=== PATIENT | female | born 1985 | race African-American/Black ===

== ENCOUNTER 2017-03-22 11:17 | Emergency (ER) | payer OTHER ==
[~2017-03-22] VITALS: Ht 170.2 cm; Wt 126.0 kg
[~2017-03-22 11:17] MED LIST: BIRTH CONTROL PILLS; NOHOMEMEDS; PEN-VEE K,VEET500 MG PO; VICODIN 5-5001 EACH PO
[2017-03-22 12:45] VITALS: BP 149/122
== END 2017-03-22 12:46 | disposition home or self-care (01) ==
LOC: EME 11:17
DX: R03.0 Elevated blood-pressure reading, without diagnosis of hypertension (principal); Z73.3 Stress, not elsewhere classified; Z79.3 Long term (current) use of hormonal contraceptives; F17.200 Nicotine dependence, unspecified, uncomplicated
CPT/HCPCS: 99281; 99283